=== PATIENT | female | born 1980 | race Caucasian/White ===

== ENCOUNTER 2020-07-02 20:11 | Emergency (ER) | payer SELFPAY ==
[2020-07-02] MEDS ORDERED: Lidocaine 1% (PF) 30 ML VIAL ONE (22:42)
[2020-07-02] MEDS ORDERED: Triple Antibiotic Oint 1 GM Packet ONE (23:01)
[2020-07-02] MEDS ORDERED: Doxycycline 100 MG CAP PO SCH (23:15)
== END 2020-07-02 23:27 | disposition home or self-care (01) ==
LOC: ERS 20:11
DX: S61.250A Open bite of right index finger without damage to nail, initial encounter (principal); S61.210A Laceration without foreign body of right index finger without damage to nail, initial encounter; F17.210 Nicotine dependence, cigarettes, uncomplicated; E03.9 Hypothyroidism, unspecified; Z79.899 Other long term (current) drug therapy; W55.81XA Bitten by other mammals, initial encounter
CPT/HCPCS: 12001; J2001

== ENCOUNTER 2022-04-19 15:58 | Emergency (ER) | payer SELFPAY ==
[2022-04-19 16:36] LABS: #Eosinphils 0.1 thou/uL (0.0-0.7); #Lymphocytes 1.5 thou/uL (1.20-3.40); #Monocytes 0.5 thou/uL (0.11-0.59); #Neutrophils 3.1 thou/uL (1.40-6.50); %Basophils 0.6 % (0.0-1.0); %Lymphocytes 29.5 % (21.0-51.0); %Monocytes 9.9 % (0.0-10.0); %Neutrophils 58.9 % (42.0-75.0); Hemoglobin 12.9 g/dL (12.0-16.0); Mean Corpuscular HGB CONC 33.8 g/dL (32.0-36.0); Mean Corpuscular Hemoglobin 32.6 pg (27.0-31.0); Mean Corpuscular Volume 96.6 fL (78.0-98.0); Mean Platelet Volume 6.3 fL (7.4-10.4); Platelet Count 333 thou/uL (130-400); RBC Distribution Width 11.9 % (11.5-14.5); Red Blood Cell (RBC) Count 3.96 mill/uL (4.20-5.40); White Blood Cell (WBC) Count 5.2 thou/uL (4.8-10.8)
[2022-04-19 16:51] LABS: ALT (SGPT) 22 U/L (8-55); AST (SGOT) 30 U/L (5-34); Albumin 4.4 g/dL (3.5-5.0); Alkaline Phosphatase 103 U/L (40-110); Anion Gap 11 mmol/L (10-20); BUN (Urea Nitrogen) 10 mg/dL (7.0-18.7); Bilirubin, Total 0.7 mg/dL (0.2-1.2); CK (CPK) 165 U/L (29-168); Calc. Creatinine Clearance 0 mL/min (70-130); Carbon Dioxide 24 mmol/L (22-29); Chloride 105 mmol/L (98-107); Estimated GFR 98; Globulin 2.5 g/dL (2.4-3.5); Glucose 136 mg/dL (70-105); Potassium 3.4 mmol/L (3.5-5.1); Protein, Total 6.9 g/dL (6.0-8.3); Sodium 137 mmol/L (136-145)
[2022-04-19 16:52] LABS: Acetaminophen Less than 10.0 mcg/mL (10.0-30.0); Alcohol 84 mg/dL (Less than 10); Salicylate Less than 8.0 mg/dL (15.0-30.0)
[2022-04-19 17:59] LABS: Bilirubin Negative (Negative); Blood, Urine Negative (Negative); Clarity Clear (Clear); Glucose, Urine (Dipstick) Normal (Negative); Ketone, Urine Negative (Negative); Leukocyte Negative Leu/uL (Negative); Nitrite Negative (Negative); Protein, Urine (Dipstick) Negative (Neg-Trace); Specific Gravity, Urine 1.016 (1.002-1.036); Urobilinogen Normal mg/dL (Less than 2); pH, Urine 6.5 (5.0-9.0)
[2022-04-19 18:02] LABS: Pregnancy Test - Urine (BHCG) Negative (Negative); Pregu Control Background? CLEAR/WHITE (CLR/WHITE); Pregu Control Bar Appear? YES (CONTROL BAR); Specific Gravity 1.016 (1.002-1.036)
[2022-04-19 18:09] LABS: Amphetamine Detected (NotDetected); Barbiturates Screen Not Detected (NotDetected); Benzodiazepine Screen Detected (NotDetected); Cocaine Metabolite Screen Not Detected (NotDetected); Methadone Not Detected (NotDetected); Methamphetamine Detected (NotDetected); Opiate Screen Not Detected (NotDetected); Oxycodone Screen Not Detected (NotDetected); Phencyclidine (PCP) Not Detected (NotDetected); THC/Cannabinoid Screen Detected (NotDetected); Tricyclic Screen Not Detected (NotDetected)
[2022-04-20] MEDS ORDERED: hydrOXYzine 25 MG TAB ONE (09:03)
[2022-04-21] MEDS ORDERED: Liothyronine Sodium 5 MCG TAB PO SCH (17:45)
[2022-04-21] MEDS ORDERED: Levothyroxine Sodium 112 MCG TAB PO SCH (17:45)
[2022-04-21] MEDS ORDERED: Levothyroxine Sodium 25 MCG TAB PO SCH (17:45)
[2022-04-22] MEDS ORDERED: traZODone HCl 50 MG TAB PO PRN (09:54)
[2022-04-22] MEDS ORDERED: hydrOXYzine Pamoate 25 mg Capsule PO PRN (09:56)
[2022-04-22] MEDS ORDERED: Acetaminophen 325 MG TAB PO PRN (09:56)
[2022-04-22] MEDS ORDERED: Levothyroxine Sodium 25 MCG TAB PO SCH (10:00)
[2022-04-22] MEDS ORDERED: Liothyronine Sodium 5 MCG TAB PO SCH (10:00)
[2022-04-22] MEDS ORDERED: Levothyroxine Sodium 112 MCG TAB PO SCH (10:00)
== END 2022-04-22 12:10 | disposition home or self-care (01) ==
LOC: ERS 15:58
DX: R45.851 Suicidal ideations (principal); F10.10 Alcohol abuse, uncomplicated; F15.10 Other stimulant abuse, uncomplicated; E03.9 Hypothyroidism, unspecified; F17.210 Nicotine dependence, cigarettes, uncomplicated; Z79.899 Other long term (current) drug therapy
CPT/HCPCS: 36415; 71045; 80053; 80306; 80307; 81003; 81025; 82550; 84443; 85025; 93005